=== PATIENT | male | born 1940 | race Caucasian/White ===

== ENCOUNTER → 2017-02-22 | Day surgery (SDC) | payer BC ==
[~2017-02-22] MED LIST: LIDOCAINE 2% MDV (20MG/ML) 20ML VIAL IV ONE; MIDAZOLAM HCL 2MG/2ML VIAL IV ONE; PROPOFOL 10 MG/ML VIAL IV ONE
--- NOTE | 2017-02-26 10:51 | Operative Note ---
DATE OF SURGERY: 02/22/2017 OPERATION: COLONOSCOPY with cold snare and cold forceps polypectomies. PREOPERATIVE DIAGNOSIS: Personal history of colon polyps. POSTOPERATIVE DIAGNOSIS: Multiple colon polyps. PREPARATION QUALITY: Good. ESTIMATED BLOOD LOSS: Minimal. SPECIMENS: Ascending colon polyps, transverse colon polyps, sigmoid polyp, and rectal polyps. COMPLICATIONS: None apparent. PROCEDURE: After informed consent was obtained from the patient, he was placed in the left lateral decubitus position in the endoscopy suite, sedated and monitored by the department of anesthesia. Digital rectal exam was unremarkable. A well-lubricated [id number] colonoscope was inserted into the rectum and advanced to the cecum. Preparation quality was good. The cecum was unremarkable. The ascending colon revealed 2 polyps which were sessile and approximately 4-5 mm in diameter each removed with a cold snare. There were 3 transverse colon polyps 3-5 mm each removed with a cold snare with minimal bleeding noted at the sites. All polyps were retrieved. The sigmoid colon revealed a diminutive polyp removed with a cold forceps. The descending colon was unremarkable. In the rectum, there were two 3-4 mm polyps each removed with a cold forceps. Forward and J-turn views of the rectum and anorectum were otherwise unremarkable. The endoscope was straightened, the rectal ampulla deflated, and the endoscope was removed. RECOMMENDATIONS: The patient should resume his medications and diet. He will require repeat exam in 3 to 5 years pending tissue histology. As always, thank you for allowing me to participate in the healthcare of your patients. Armand Nelson DO CC: MARINA Vargas
== END | disposition home or self-care (01) ==
LOC: HOP 13:38
PROVIDERS: ATTEND Internal Medicine Gastroenterology
DX: Z09 Encounter for follow-up examination after completed treatment for conditions other than malignant neoplasm (principal); D12.2 Benign neoplasm of ascending colon; D12.3 Benign neoplasm of transverse colon; D12.5 Benign neoplasm of sigmoid colon; K62.1 Rectal polyp; I10 Essential (primary) hypertension; E11.9 Type 2 diabetes mellitus without complications; Z79.4 Long term (current) use of insulin; Z79.84 Long term (current) use of oral hypoglycemic drugs

== ENCOUNTER 2019-12-08 11:24 | Emergency (ER) | payer BC ==
[2019-12-08] MEDS ORDERED: 0.9 % SODIUM CHLORIDE 1000ML 1,000 ML IV ONE (11:50)
--- NOTE | 2019-12-08 11:57 | Emergency Department Record ---
History of Present Illness - General Chief Complaint: Chest Pain Stated Complaint: CHEST PAIN Time Seen by Provider: 12/08/19 11:36 Source: Patient Mode of Arrival: Ambulatory Limitations: No limitations - History of Present Illness Initial Comments: Pt to ED with complaint of CP at home over the past week. Comes and goes associated with exertion. Pain is anterior chest into arms with left > right. Not to back. No associated TONI or nausea/diaphoresis. Pt has significant cardiac history with 3 vessel CABG 7 years ago and a cath with stent 6 months ago at [facility]. Last episode of CP was driving to ED, took SL NTG in car and pain is gone. No ASA due to allergy. Is on Plavix at this time. No recent illness, fever, chill, cough. Onset/Timin -: Week(s) Onset: Awoke with symptoms Pain Location: Substernal Pain Radiation: LUE Consistency: Intermittent Worsens With: Nothing Treatments Prior to Arrival: Nitroglycerin - Related Data Home Medications Medication Instructions Recorded Confirmed Last Taken Ezetimibe 10 mg PO DAILY 12/08/19 12/08/19 12/08/19 Insulin Glargine,Hum.rec.anlog 90 unit SQ BID 12/08/19 12/08/19 12/08/19 [Basaglar Kwikpen U-100] Metformin HCl 1,000 mg PO BID 12/08/19 12/08/19 12/08/19 Nitroglycerin [Nitrostat] 0.4 mg SL ASDIR 12/08/19 12/08/19 12/08/19 Allergies Allergy/AdvReac Type Severity Reaction Status Date / Time aspirin Allergy HIVES Verified 12/08/19 11:32 cyclosporine Allergy ITCHING Verified 12/08/19 11:32 morphine Allergy HIVES Verified 12/08/19 11:32 tetracycline Allergy ITCHING Verified 12/08/19 11:32 Travel Screening - Travel/Exposure Within Last 30 Days Have you traveled within the last 30 days?: No Review of Systems Constitutional: Denies: Chills, Fever Eyes: Denies: Eye discharge, Vision change ENT: Denies: Congestion Respiratory: Denies: Cough Cardiovascular: Reports: As per HPI, Chest pain. Denies: Palpitations, Syncope Endocrine: Denies: Fatigue Gastrointestinal: Denies: Abdominal pain, Nausea, Vomiting Musculoskeletal: Denies: Back pain Skin: Denies: Bruising, Rash Neurological: Denies: Headache, Tingling Psychiatric: Denies: Anxiety Hematological/Lymphatic: Denies: Anemia Past Medical History - SOCIAL HISTORY Smoking Status: Former smoker Alcohol Use: Occasional Drug Use: None - RESPIRATORY Hx Respiratory Disorders: Yes Hx Asthma: Yes Hx COPD: Yes - CARDIOVASCULAR Hx Cardio Disorders: Yes Hx Hypertension: Yes Hx Coronary Artery Disease: Yes Hx Coronary Artery Bypass Graft: Yes Comment:: 3 heart stents - NEURO Hx Neuro Disorders: No - GI Hx GI Disorders: Yes Hx of Polyps: Yes - Hx Genitourinary Disorders: Yes Hx Prostate Problems: Yes (enlarged) - ENDOCRINE Hx Endocrine Disorders: Yes Hx Diabetes: Yes - MUSCULOSKELETAL Hx Musculoskeletal Disorders: Yes Hx Arthritis: Yes Hx Back Injury: Yes (20 yrs ago) - PSYCH Hx Psych Problems: No - HEMATOLOGY/ONCOLOGY Hx Hematology/Oncology Disorders: No Family Medical History Any Significant Family History?: Yes Hx Cancer: Brother/Sister *Cancer Comment: Brother-colon cancer Physical Exam - General General Appearance: Alert, Oriented x3, Cooperative, Mild distress - Head Head exam: Atraumatic, Normocephalic - Eye Eye exam: Normal appearance, PERRL - ENT ENT exam: Mucous membranes moist Nasal Exam: Normal inspection Mouth exam: Normal external inspection - Neck Neck exam: Normal inspection, Full ROM. negative: Lymphadenopathy - Respiratory Respiratory exam: Normal lung sounds bilaterally. negative: Respiratory distress, Rhonchi - Cardiovascular Cardiovascular Exam: Regular rate, Normal rhythm. negative: Diastolic murmur, Systolic murmur, Tachycardia Peripheral Pulses: 2+: Radial (R), Radial (L) - GI/Abdominal GI/Abdominal exam: Soft, Normal bowel sounds. negative: Tenderness - Rectal Rectal exam: Deferred - exam: Deferred - Extremities Extremities exam: Normal inspection, Full ROM. negative: Calf tenderness, Joint swelling, Pedal edema - Back Back exam: Reports: Normal inspection - Neurological Neurological exam: Alert, Normal gait, Oriented X3 - Psychiatric Psychiatric exam: Normal affect, Normal mood - Skin Skin exam: Normal color. negative: Pallor, Rash Course Vital Signs 12/08/19 11:28 Temperature 97.9 F Pulse Rate 101 H Respiratory 20 Rate Blood Pressure 142/91 Pulse Ox 98 - Reevaluation(s) Reevaluation #1: 12/08/19 11:58 Seen on arival, EKG without ST elevation. Allergic to ASA. Monitor and labs. CP FREE at this time. Await results. Pt aware that he will not be going home today and will require admission. Reevaluation #2: 12/08/19 12:52 Trop slightly elevated. Discussed with Dr Menard outbound sales agent who is com fortable with admission here at [facility]. MARINA Giraldo aware and accepts. Pt is CP free since arrival and agrees with plan. Procedures - EKG Initial Date: 12/08/19 Time: 11:53 EKG: Abnormal EKG EKG Detail: SR at 94, T inversion lateral Medical Decision Making - Lab Data Result diagrams: 12/08/19 11:35 12/08/19 11:35 Disposition Disposition: Admit Clinical Impression: Chest pain Qualifiers: Chest pain type: precordial pain Qualified Code(s): R07.2 - Precordial pain Disposition: Still a Patient at [facility] Decision to Admit: Admit from ER Decision to Admit Date: 12/08/19 Decision to Admit Time: 12:55 Accepting Physician: Gertrude Time Discussed w/Accepting Physician: 12:55 (MARINA Giraldo) Condition: (3) Guarded Forms: Patient Portal Access Time of Disposition: 12:55 Quality - Quality Measures Quality Measures: N/A - Blood Pressure Screening Does Patient Have Any of the Following: No Blood Pressure Classification: Hypertensive Reading Systolic Measurement: 142 Diastolic Measurement: 91 Screening for High Blood Pressure: Patient Exclusion, Hx of HTN [[id number]]
[2019-12-08 11:59] LABS: ABSOLUTE NEUTROPHIL COUNT 5.91; BASO % 0.5 % (0-6); EOS % 2.1 % (0-6); GRAN % 58.4 % (47-80); HEMATOCRIT 41.8 % (42.0-52.0); HEMOGLOBIN 13.8 gm/dl (14.0-18.0); LYMPH % 31.1 % (16-45); MEAN CELL VOLUME 91.1 fl (81-97); MEAN PLATELET VOLUME 9.2 fl (7.4-10.4); MONO % 7.9 % (0-9); PLATELET COUNT 316 K/uL (130-400); RED BLOOD COUNT 4.59 M/uL (4.40-5.70); RED CELL DISTRIBUTION WIDTH 12.9 % (11.5-14.5); WHITE BLOOD COUNT W/O DIFF 10.1 K/uL (4.2-12.2)
[2019-12-08 12:17] LABS: BLOOD UREA NITROGEN 17 mg/dL (8-23); CREATININE 1.1 mg/dL (0.7-1.2); EST GLOMERULAR FILTRATION RATE > 60 mL/min
[2019-12-08 12:19] LABS: PARTIAL THROMBOPLASTIN TIME 26.4 SECONDS (24.5-39.1); PROTHROMBIN TIME (PATIENT) 10.3 SECONDS (9.5-12.1)
[2019-12-08 12:20] LABS: GLUCOSE,RANDOM 124 mg/dL (74-109)
--- NOTE | 2019-12-08 12:30 | RADIOLOGY REPORT ---
EXAMINATION: Two View Chest Radiographs EXAM DATE: 12/08/2019 12:15 PM TECHNIQUE: Frontal and lateral views INDICATION: Chest Pain COMPARISON: None ENCOUNTER: Not applicable FINDINGS: The heart, mediastinum, and pulmonary vasculature are normal. No lung consolidation or pleural effu sions are present. Sternal hardware is noted. IMPRESSION: No acute cardiopulmonary abnormality. Dictated by: Jonathan Gonsalves MD on 12/08/2019 12:28 PM. .
[2019-12-08 12:33] LABS: THYROID STIMULATING HORMONE 0.65 uIU/mL (0.270-4.20)
[2019-12-08] MEDS ORDERED: CLOPIDOGREL 75MG TABLET PO ONE (12:47)
== END 2019-12-08 14:03 | disposition short-term general hospital (02) ==
LOC: ER 11:24
DX: R07.2 Precordial pain (principal); R06.02 Shortness of breath; R79.89 Other specified abnormal findings of blood chemistry; I10 Essential (primary) hypertension; Z87.891 Personal history of nicotine dependence; Z79.02 Long term (current) use of antithrombotics/antiplatelets; Z95.1 Presence of aortocoronary bypass graft; E11.9 Type 2 diabetes mellitus without complications; J44.9 Chronic obstructive pulmonary disease, unspecified
CPT/HCPCS: 71046; 80048; 83880; 84443; 84484; 85025; 85610; 85730; 93005; 93010; 99285